=== PATIENT | male | born 1955 | race Hispanic/Latino ===

== ENCOUNTER 2018-10-29 01:33 | Emergency (ER) | payer OTHER ==
[2018-10-29 01:50] VITALS: BP 164/97
[2018-10-29] MEDS ORDERED: TORADOL IM ONE (03:04)
--- NOTE | 2018-10-29 03:58 | Emergency Department Report ---
ED ENT HPI - General Chief complaint: Dental/Oral Stated complaint: ABSCESS ON TOOTH/PAIN Time Seen by Provider: 10/29/18 03:04 Source: patient Mode of arrival: Ambulatory Limitations: No Limitations - History of Present Illness Initial comments: Patient is a 63-year-old white male who presents for dental pain #29 patient has been seen in urgent care today states he received a pain shot and a steroid shot requesting pain medication tonight however he did receive a prescription for hydrocodone and penicillin by mouth patient has appointment with dentist on 5 days from now for definitive treatment for dental caries patient is advised to fill prescriptions as given Peridex mouth rinse and follow up with dentist as scheduled patient verbalizes agreement and understanding and same DC'd to home in stable condition at this time MD complaint: tooth pain Onset/Timin -: week(s), unknown (hx or recurring problem for past 3 yrs ) Location: tooth # (29) Severity: moderate Severity scale (0 -10): 5 Quality: aching Consistency: constant Improves with: none Worsens with: eating Context- Dental: history of dental caries, poor dental care Associated Symptoms: toothache - Related Data Previous Rx's Medication Instructions Recorded Last Taken Type Chlorhexidine Mouthwash [Peridex] 15 ml MM BID #1 bottle 10/29/18 Unknown Rx Allergies Allergy/AdvReac Type Severity Reaction Status Date / Time No Known Allergies Allergy Unverified 10/29/18 01:42 ED Dental HPI - General Chief complaint: Dental/Oral Stated complaint: ABSCESS ON TOOTH/PAIN Time Seen by Provider: 10/29/18 03:04 Source: patient Mode of arrival: Ambulatory Limitations: No Limitations - Related Data Previous Rx's Medication Instructions Recorded Last Taken Type Chlorhexidine Mouthwash [Peridex] 15 ml MM BID #1 bottle 10/29/18 Unknown Rx Allergies Allergy/AdvReac Type Severity Reaction Status Date / Time No Known Allergies Allergy Unverified 10/29/18 01:42 ED Review of Systems ROS: Stated complaint: ABSCESS ON TOOTH/PAIN Other details as noted in HPI Constitutional: denies: chills, fever Eyes: denies: eye pain, eye discharge, vision change ENT: dental pain Respiratory: denies: cough, shortness of breath, wheezing Cardiovascular: denies: chest pain, palpitations Endocrine: no symptoms reported Gastrointestinal: denies: abdominal pain, nausea, diarrhea Genitourinary: denies: urgency, dysuria Musculoskeletal: denies: back pain, joint swelling, arthralgia Skin: denies: rash, lesions Neurological: denies: headache, weakness, paresthesias Psychiatric: denies: anxiety, depression Hematological/Lymphatic: denies: easy bleeding, easy bruising ED Past Medical Hx - Past Medical History Previous Medical History?: No - Surgical History Past Surgical History?: Yes Additional Surgical History: right Hip replacement, B/L great toe replacement - Social History Smoking Status: Former Smoker Substance Use Type: None - Medications Home Medications: Home Medications Medication Instructions Recorded Confirmed Last Taken Type Chlorhexidine Mouthwash [Peridex] 15 ml MM BID #1 bottle 10/29/18 Unknown Rx ED Physical Exam - General Limitations: No Limitations General appearance: alert, in no apparent distress - Head Head exam: Present: atraumatic, normocephalic - Eye Eye exam: Present: normal appearance, PERRL, EOMI Pupils: Present: normal accommodation - ENT ENT exam: Present: mucous membranes moist, TM's normal bilaterally, normal external ear exam - Expanded ENT Exam Expanded Mouth exam: Absent: trismus Teeth exam: Present: dental caries (29), dental tenderness #. Absent: gingival enlargement Throat exam: Positive: normal inspection, other (no swelling no erythema no exudate no stridor no wheezing ). Negative: tonsillar erythema, tonsillomegaly, tonsillar exudate, R peritonsillar mass - Neck Neck exam: Present: normal inspection, full ROM. Absent: tenderness, meningismus, lymphadenopathy, thyromegaly - Respiratory Respiratory exam: Present: normal lung sounds bilaterally. Absent: respiratory distress, wheezes, stridor, chest wall tenderness - Cardiovascular Cardiovascular Exam: Present: regular rate, normal rhythm, normal heart sounds. Absent: systolic murmur, diastolic murmur, rubs, gallop - GI/Abdominal GI/Abdominal exam: Present: soft, normal bowel sounds. Absent: distended, tenderness, bruit, hernia - Rectal Rectal exam: Present: deferred - Extremities Exam Extremities exam: Present: normal inspection, full ROM - Back Exam Back exam: Present: normal inspection, full ROM. Absent: tenderness, rash noted - Neurological Exam Neurological exam: Present: alert, oriented X3, CN II-XII intact, normal gait - Psychiatric Psychiatric exam: Present: normal affect - Skin Skin exam: Present: warm, dry, intact, normal color. Absent: rash ED Course Vital Signs 10/29/18 01:42 Temperature 97.6 F Pulse Rate 81 Respiratory 18 Rate Blood Pressure 164/97 O2 Sat by Pulse 97 Oximetry ED Medical Decision Making - Medical Decision Making pt presents for infected dental carries, currently rx: pcn and hydrocodone, will add peridex mouths rinse, pt has dentist appoint on , advised to keep appointment as scheduled, ent: exam no gum or facial swelling mild erythema to #29 there is no trismus no swelling no throat or ear pain pt for dc to home in stable condition at this time. Critical care attestation.: If time is entered above; I have spent that time in minutes in the direct care of this critically ill patient, excluding procedure time. ED Disposition Clinical Impression: Chronic dental pain, Infected dental carries Disposition: DC-01 TO HOME OR SELFCARE Is pt being admited?: No Does the pt Need Aspirin: No Condition: Stable Instructions: Dental Caries (ED), Toothache (ED) Prescriptions: Chlorhexidine Mouthwash [Peridex] 15 ml MM BID #1 bottle Referrals: RAFAL NELSON MD [Primary Care Provider] - 3-5 Days Forms: Work/School Release Form(ED) Time of Disposition: 04:04
== END 2018-10-29 04:28 | disposition home or self-care (01) ==
LOC: ED 01:33
DX: K04.7 Periapical abscess without sinus (principal); Z96.641 Presence of right artificial hip joint; Z87.891 Personal history of nicotine dependence; Z79.899 Other long term (current) drug therapy
CPT/HCPCS: 96372; 99282; J1885